=== PATIENT | female | born 1935 | race Caucasian/White ===

== ENCOUNTER 2017-01-20 16:01 | Observation (INO) | payer OTHER ==
--- NOTE | ~2017-01-20 | HP ---
History And Physical [place] [id number] [facility] [place]. [address] NAME: WU [address] : [address] STATUS : ADM David PAT#: [id number] AGE: 81 ADM/REG DATE : 01/20/17 MR#: [id number] REPORT SERV DATE: 01/21/17 DICTATED BY: BARTOLOME DOWNEY DATE: 01/21/17 REPORT STATUS : Draft TRANSCRIBED BY: MODL DATE: 01/21/17 DATE OF ADMISSION: 01/20/2017 EAR, NOSE, THROAT SPECIALIST: Dr. Jack. CHIEF COMPLAINT: Left-sided chest pain and dyspnea. HISTORY OF PRESENT ILLNESS: This is a pleasant 81-year-old white female with a history of hypertension, former history of tobacco use, and family history of CAD at advanced ages. She reports approximately three to four weeks ago, she had a chemical inhalation of a pesticide that she was spraying on plants outside and subsequently became quite ill and was managed by her ear, nose, and throat specialist Dr. Jack for rash, irritation to eyes, tongue, and dyspnea. She is now status post steroids. She does also have asthma. She notes Home Health has been commenting since that episode about crackles on the left side of her chest. Since Sunday, she has noted a worsening of chest heaviness on the left side of her chest and her chronic dyspnea is a little bit worse. She decided to go to the emergency room yesterday because left chest heaviness became severe when she was watering her martinez outside. She also felt dyspneic. In the emergency room, nitroglycerin helped and the pain resolved with nitroglycerin paste. She reports chest pain reoccurred after straining for a large bowel movement immediately before my seeing the patient this morning at 07:45 a.m. in the [facility]. She reports her head was pounding after straining for the bowel movement. She was tearful at my time of examination, stating that her left chest felt crackly like fluid under the breast. She denies any cough or fever. She also reports her family has been concerned because she went to her primary care provider on Sunday and he increased lisinopril as her blood pressure has become more elevated since the steroids and above episodes. Since then, she has become shaky and had an episode where she dropped her dishes while she was shaky. She denies any current episodes of shakiness or any other symptoms at this time except for the shortness of breath and chest pain. PAST MEDICAL HISTORY: 1. Hypertension. 2. Lupus. 3. Asthma. 4. rheumatoid arthritis. 5. Right bundle branch block. 6. GERD. 7. DVT in the with no recurrence. 8. Allergies. 9. Recent pesticide inhalation/exposure with a reaction. managed by her ENT including eyes burning, trouble breathing, rash tongue and upper chest, and dyspnea this was treated by Dr. Jack with two types of steroids reportedly approximately three weeks ago and she has completed that steroid course. PAST SURGICAL HISTORY: 1. Hysterectomy. 2. Right knee arthroscopic repair. History And Physical [address] [address] NAME: [address] : 37 STATUS : ADM David PAT#: [id number] AGE: 81 ADM/REG DATE : 01/20/17 MR#: [id number] REPORT SERV DATE: 01/21/17 DICTATED BY: BARTOLOME DOWNEY DATE: 01/21/17 REPORT STATUS : Draft TRANSCRIBED BY: MELYSSA DATE: 01/21/17 3. Left cataract surgery. 4. Right cataract surgery. SOCIAL HISTORY: . Lives alone. Three adult children. Remote tobacco, quit many years ago after smoking only four to five years. She denies any alcohol or illicit drug use. She reports, she had been very active until worsening dyspnea a number of months ago, slowly getting worse in preventing her from going on her stationary bike at home. She notes since then her primary care provider has changed her asthma medications to try to improve control. But, she still is unable to exercise on the stationary bike due to dyspnea with exercise. FAMILY HISTORY: Negative for premature CAD. She notes her mother in her 80s of a myocardial infarction and her father at the age of 96 of a myocardial infarction. REVIEW OF SYSTEMS: Last stress test reportedly 04/12/2015 is unavailable to my review, but she tells me she was not told there were any abnormalities or problems with that. As above per HPI, all other systems reviewed and negative. ALLERGIES: 1. SULFA, REACTION SWELLING, RASH. 2. CECLOR, RASH. 3. CODEINE, NAUSEA AND VOMITING. 4. EGGS, SEVERE DIARRHEA. HOME MEDICATIONS: Reviewed and is as follows: 1. Artificial Tears one drop twice a day in both eyes. 2. Aspirin chewable 81 mg p.o. daily. 3. Advair Diskus one puff inhaled twice a day. 4. Singulair 10 mg p.o. daily. 5. Hydroxychloroquine 200 mg p.o. twice per day. 6. Omeprazole 20 mg p.o. daily. 7. Potassium chloride 10 mEq p.o. daily. 8. Triamterene/HCTZ 37.5/25 mg tablet one tablet p.o. daily. PHYSICAL EXAMINATION: VITAL SIGNS: Oxygen saturation 93% on room air, weight 81.36 kg, height 165.1 cm, temperature 98, pulse 68, respiratory rate 18, blood pressure 132/60 with most recent blood pressure 114/59. GENERAL: Well-developed, well-nourished. Tearful at times as she currently reports pain post bowel movement and concern over her health status HEENT: Head normocephalic. No xanthelasma. Sclera clear, anicteric. Moist mucous membranes without pallor. No lymphadenopathy. No deficits noted. NECK: Trachea midline. Supple. No thyromegaly, JVD, or bruits. RESPIRATORY: Unlabored respirations. Crackles noted left upper chest, otherwise clear to auscultation. CARDIOVASCULAR: Regular rate and rhythm. No murmur, rub, or gallop appreciated. No chest History And Physical [address] [address] NAME: WU [address] : 37 STATUS : ADM David PAT#: [id number] AGE: 81 ADM/REG DATE : 01/20/17 MR#: [id number] REPORT SERV DATE: 01/21/17 DICTATED BY: BARTOLOME DOWNEY DATE: 01/21/17 REPORT STATUS : Draft TRANSCRIBED BY: MODL DATE: 01/21/17 wall tenderness to palpation. ABDOMEN: Soft, nontender, and nondistended. Active bowel sounds auscultated x4 quadrants. No organomegaly and no masses. No aortic bruit. EXTREMITIES: DP/PT and radial pulses 2+ bilaterally. No clubbing, cyanosis, or edema. SKIN: Warm, dry, intact. No rash. Normal turgor. MUSCULOSKELETAL: Moves all extremities in bed without difficulty. NEURO/PSYCH: Alert and oriented x3 with no acute distress. Affect appropriate to current situation. LABORATORY DATA: BMP: Sodium 144, potassium 3.8, creatinine 0.94, glucose 88, calcium 9.2, magnesium 2.2. CBC: White blood cell count 7.1, hemoglobin 13.6, hematocrit 40.2, platelets 235. Troponin less than 0.02 x3. BNP normal at 83. STUDIES: Chest x-ray, no acute processes. Heart borderline size. EKGs personally interpreted x3, sinus arrhythmia with right bundle branch block and with short ID interval, no ischemia. Telemetry; sinus arrhythmia with right bundle branch block. ASSESSMENT AND PLAN: 1. Precordial chest pain. Acute coronary syndrome has been ruled out. No ischemia on EKGs and negative troponins x3. Chest pain and dyspnea since Sunday with a crackly feeling in the left chest. Chest x-ray is clear. There are crackles on the left. She did have recent exposure three weeks ago to pesticides. I will give bronchodilator protocol. Continue her home asthma medications. I will plan a nuclear stress test tomorrow given cardiac risk factors of age, hypertension, and remote tobacco use. If it is low risk with no ischemia, she is to be discharged to home with followup with primary care provider in one week. 2. Dyspnea, please see above. 3. Asthma, this is managed by primary care provider. She is to follow up with PCP in one week. There is no evidence of an acute asthma exacerbation. Chest x-ray is clear and there is no hypoxia. 4. Hypertension. I will continue her home medications. This appears well controlled at this time. 5. Chronic right bundle branch block, this is noted. The patient was seen by the [facility] international project engineer for the [facility], Dr. Klein. KL/MODL Bartolome Downey NP / [id number] History And Physical [address] [place]. [address] NAME: W[address] : 37 STATUS : ADM David PAT#: [id number] AGE: 81 ADM/REG DATE : 01/20/17 MR#: [id number] REPORT SERV DATE: 01/21/17 DICTATED BY: BARTOLOME DOWNEY DATE: 01/21/17 REPORT STATUS : Draft TRANSCRIBED BY: MODL DATE: 01/21/17 CC: Юлия Mccann, MSN, LUSTER REPAIRER- Gian Klein M.D., Ph.D, F.A.C.C. Michael Jack M.D.
[2017-01-20 15:36] LABS: BASOPHILS 0.3 %; BASOPHILS ABSOLUTE 0.02 10/3/uL (0.0-0.16); EOSINOPHILS ABSOLUTE 0.14 10/3/uL (0.0-0.53); ER CBC TAT 0 Hrs 07 Mins; HEMATOCRIT 40.2 % (36.0-48.0); HEMOGLOBIN 13.6 g/dL (12.0-16.0); IMMATURE GRANULOCYTES 0.3 %; IMMATURE GRANULOCYTES ABSOLUTE 0.02 10/3/uL (0.0-0.11); LYMPHOCYTES 18.2 %; MEAN CORPUS HGB CONC 33.8 g/dL (32.0-36.0); MEAN CORPUSCULAR HEMOGLOB 31.6 pg (26.0-34.0); MEAN CORPUSCULAR VOLUME 93.5 fL (80-100); MEAN PLATELET VOLUME 9.5 fL (9.2-13.0); MONOCYTES 7.2 %; MONOCYTES ABSOLUTE 0.51 10/3/uL (0.21-1.20); NEUTROPHILS ABSOLUTE 5.14 10/3/uL (2.02-8.40); PLATELET COUNT 235 10/3/uL (150-400); RBC DISTRIBUTION WIDTH 12.7 % (12.0-16.0); WHITE BLOOD CELLS 7.1 10/3/uL (4.5-10.5)
[2017-01-20 15:37] LABS: MANUAL DIFF NO %
[2017-01-20 15:45] LABS: PARTIAL THROMBO TIME 24.8 SEC (22.5-37.2); PROTIME (NOT ORD) 13.4 SEC (12.0-14.5)
[2017-01-20 16:00] LABS: CALCIUM, SERUM 9.2 MG/DL (8.5-10.4); CHLORIDE, SERUM 108 MMOL/L (96-112); CO2 (CARBON DIOXIDE) 29 MMOL/L (24-34); CREATININE 0.94 MG/DL (0.55-1.02); GFR AFRICAN AMERICAN 67 ML/MIN (>=60); GFR NON AFRICAN AMERICAN 58 ML/MIN (>=60); GLUCOSE, SERUM 88 MG/DL (60-99); POTASSIUM, SERUM 3.8 MMOL/L (3.5-5.3); SODIUM, SERUM 144 MMOL/L (135-148); TROPONIN I <0.02 NG/ML (<0.05)
[~2017-01-20 16:01] MED LIST: ACET500CAP PO; ADVAIR250 INH; KLOR-CON M1010 MEQ PO; KLOR-CON M2020 MEQ PO; L40 PO; MAX25 PO; PLAQ200B PO; PREV30 PO; REFRES1 OP; TUMSROLL PO; VALTREX1 GM PO; VITAMIN B PO; VITD PO
[2017-01-20 16:02] LABS: BUN (BLOOD UREA NITROGEN) 22 MG/DL (6-23); CHEST PAIN PROFILE TAT 0 Hrs 31 Mins
[2017-01-20] MEDS ORDERED: PLAQ200B PO (16:45)
[2017-01-20] MEDS ORDERED: K-TABS10 MEQ PO (16:45)
[2017-01-20] MEDS ORDERED: SINGULAIR1 PO (16:46)
[2017-01-20] MEDS ORDERED: MAX25 PO (16:46)
[2017-01-20] MEDS ORDERED: PRILO PO (16:46)
[2017-01-20] MEDS ORDERED: ASAB PO (16:46)
[2017-01-20] MEDS ORDERED: ADVAIR250 INH (16:46)
[2017-01-20] MEDS ORDERED: TEARS PURE OPH (16:47)
== END 2017-01-22 14:25 | disposition home or self-care (01) ==
LOC: ER 16:01 → CDU1 16:53
PROVIDERS: Physician Assistant
DX: R07.2 Precordial pain (principal); R06.00 Dyspnea, unspecified; J45.909 Unspecified asthma, uncomplicated; I10 Essential (primary) hypertension; I45.10 Unspecified right bundle-branch block; M32.9 Systemic lupus erythematosus, unspecified; M06.9 Rheumatoid arthritis, unspecified; K21.9 Gastro-esophageal reflux disease without esophagitis; Z90.710 Acquired absence of both cervix and uterus; Z98.41 Cataract extraction status, right eye; Z98.42 Cataract extraction status, left eye; Z98.890 Other specified postprocedural states; Z88.2 Allergy status to sulfonamides; Z88.5 Allergy status to narcotic agent; Z91.012 Allergy to eggs; Z79.82 Long term (current) use of aspirin; Z79.899 Other long term (current) drug therapy
CPT/HCPCS: 71010; 78452; 80048; 83735; 83880; 84484; 85025; 85610; 85730; 93005; 93017; 94640; 96372; 96374; 99285; A9270-GY; A9502; G0378; J0153; J2405